=== PATIENT | female | born 1945 | race Caucasian/White ===

== ENCOUNTER → 2019-02-28 | Outpatient (CLI) | payer MEDICARE, OTHER ==
[~2019-02-28] MED LIST: ADULT LOW DOSE81 MG PO; AGGRENOX CAPSU1 EACH PO; ASPIR 8181 MG PO; BONE DENSITY C1 EACH PO; CALCIUM +D & M1 EACH PO; CENTRUM SILVER1 EAC4 PO; FISHOIL; FLONASE 0.05%50 MCG NS; GLUCOSAMINE HC500 MG PO; HYDROXYCHLOROQ200 M1 PO; LANOXIN 0.250.25 M1 PO; MEGARED OMEGA-1 EAC1 PO; MULTIPLE VITAM1 EAC1 PO; MULTIPLE VITAM1 EAC2 PO; NATURAL VITA100 UNIT PO; NORVASC 5 MG TAB5 MG PO; PROBIOTIC1 EAC1 PO; VITAMIN D3400 UNIT PO; VITAMINC500 PO
== END ==
LOC: M.WC 05:16
DX: I89.0 Lymphedema, not elsewhere classified (principal); I10 Essential (primary) hypertension; M06.9 Rheumatoid arthritis, unspecified; Z86.718 Personal history of other venous thrombosis and embolism; Z79.82 Long term (current) use of aspirin

== ENCOUNTER → 2020-04-24 | Outpatient (CLI) | payer MEDICARE | LOC: M.WC 10:00 | PROVIDERS: ATTEND Surgery | DX: L89.153 Pressure ulcer of sacral region, stage 3 (principal); I89.0 Lymphedema, not elsewhere classified; I87.2 Venous insufficiency (chronic) (peripheral); I10 Essential (primary) hypertension; E44.0 Moderate protein-calorie malnutrition; M06.9 Rheumatoid arthritis, unspecified; M81.0 Age-related osteoporosis without current pathological fracture; Z87.891 Personal history of nicotine dependence; Z86.718 Personal history of other venous thrombosis and embolism; Z90.49 Acquired absence of other specified parts of digestive tract ==

== ENCOUNTER → 2020-05-15 | Outpatient (CLI) | payer MEDICARE | LOC: M.WC 09:46 | PROVIDERS: ATTEND Surgery | DX: L89.153 Pressure ulcer of sacral region, stage 3 (principal); E44.0 Moderate protein-calorie malnutrition; I89.0 Lymphedema, not elsewhere classified; I87.2 Venous insufficiency (chronic) (peripheral); I10 Essential (primary) hypertension; M81.0 Age-related osteoporosis without current pathological fracture; M06.9 Rheumatoid arthritis, unspecified; Z87.891 Personal history of nicotine dependence; Z86.718 Personal history of other venous thrombosis and embolism ==

== ENCOUNTER 2020-07-28 17:08 | Emergency (ER) | payer MEDICARE, OTHER ==
[~2020-07-28] VITALS: Ht 160 cm; Wt 41.7 kg
[2020-07-28] MEDS ORDERED: APAP W/CODEINE1 TA2 PO (19:05)
[2020-07-28 19:45] VITALS: BP 133/79
== END 2020-07-28 19:45 | disposition home or self-care (01) ==
LOC: M.ERS 17:08
DX: S63.502A Unspecified sprain of left wrist, initial encounter (principal); S39.92XA Unspecified injury of lower back, initial encounter; M25.551 Pain in right hip; Z79.82 Long term (current) use of aspirin; Z79.899 Other long term (current) drug therapy; Z91.041 Radiographic dye allergy status; W18.39XA Other fall on same level, initial encounter; Y93.89 Activity, other specified; Y92.89 Other specified places as the place of occurrence of the external cause; Y99.8 Other external cause status

== ENCOUNTER 2020-09-20 07:20 | Inpatient (IN) | payer MEDICARE, OTHER ==
[~2020-09-20] VITALS: Ht 172.7 cm; Wt 40.6 kg
[~2020-09-20 07:20] MED LIST changes: +APAP W/CODEINE1 TA2 PO
[2020-09-20 07:25] VITALS: BP 124/75
[2020-09-20 07:55] LABS: ABSOLUTE EOSINOPHILS 0.1 thou/uL (0.0-0.7); ABSOLUTE LYMPHOCYTES 0.4 thou/uL (0.8-5.3); ABSOLUTE MONOCYTES 0.3 thou/uL (0.0-1.2); ABSOLUTE NEUTROPHILS 4.4 thou/uL (1.6-8.1); BASOPHILS 0.8 %; EOSINOPHILS 1.5 %; HEMATOCRIT 33.7 % (37.0-47.0); LYMPHOCYTES 7.2 %; MCH 30.4 pg (26.0-34.0); MCHC 32.8 g/dL (28.0-37.0); MCV 92.7 fL (80.0-100.0); MONOCYTES 6.1 %; MPV 8.6 fl. (7.2-11.1); NUCLEATED RBCS 0 /100WBC; PLATELET COUNT* 214 thou/uL (150-400); POLYS 84.4 %; RBC 3.63 mil/uL (4.20-5.00); RDW-CV 17.2 % (10.5-14.5); WBC 5.2 thou/uL (4.0-11.0)
[2020-09-20] MEDS ORDERED: NORVASC 2.5 MG2.5 M1 PO (07:58)
[2020-09-20 08:09] LABS: CALCIUM 8.6 mg/dL (8.5-10.1); CREATININE 0.7 mg/dL (0.6-1.3); POTASSIUM 4.3 mmol/L (3.5-5.1)
[2020-09-20 08:12] LABS: APTT 25.1 Seconds (25.0-31.3); PROTIME 10.9 Seconds (9.20-11.50)
[2020-09-20 08:27] LABS: ALBUMIN 3.4 g/dL (3.4-5.0); TOTAL PROTEIN 6.8 g/dL (6.4-8.2)
[2020-09-20 09:27] LABS: URINE BILIRUBIN NEGATIVE (Negative); URINE BLOOD NEGATIVE (Negative); URINE CLARITY CLEAR; URINE COLOR YELLOW; URINE GLUCOSE-RANDOM NEGATIVE (Negative); URINE KETONES NEGATIVE (Negative); URINE LEUKOCYTES-REFLEX NEGATIVE (Negative); URINE NITRITE-REFLEX NEGATIVE (Negative); URINE PROTEIN NEGATIVE (Negative); URINE UROBILINOGEN 0.2 E.U./dl (0.2-1.0)
[2020-09-20 10:00] VITALS: BP 114/71
[2020-09-20 10:30] VITALS: BP 132/88
[2020-09-20 12:02] VITALS: BP 118/71
--- NOTE | 2020-09-20 13:12 | 2DMMODE ---
[place] [address] 2 D/M-MODE ECHOCARDIOGRAM Name: LLOYD ELDER Room: [address] IN .R.#: [id number] Admission: 09/20/20 Attend Phys: Ricardo Mac, Discharge: Date of : 41 Date of Service: 09/20/20 1312 Report #: [id number] THIS REPORT FOR: cc: Xavier Castillo MD, Dean L. MD Blick, David R. MD [facility] ~ APPROVED REPORT Study performed: 09/20/2020 11:00:26 EXAM: Comprehensive 2D, Doppler, and color-flow Echocardiogram Patient Location: In-Patient Room #: 209 Status: routine BSA: 1.59 HR: 57 bpm BP: 114/71 mmHg Rhythm: NSR Other Information Study Quality: Excellent Indications CVA/TIA Echo Enhancing Agent Indication: Rule out Shunt Agent(s) / Amount(s) Used: Agitated Saline 10 cc 2D Dimensions IVSd: 9.10 (7-11mm) LVOT Diam: 20.08 (18-24mm) LVDd: 46.04 mm PWd: 8.74 (7-11mm) LVDs: 27.28 (25-40mm) Aortic Root: 39.62 mm Volumes Left Atrial Volume (Systole) LA ESV Index: 50.10 mL/m2 Aortic Valve AoV Peak Garrison.: 1.20 m/s AO Peak Gr.: 5.80 mmHg LVOT Max P.35 mmHg AO Mean Gr.: 3.05 mmHg LVOT Mean P.93 [place] [address] 2 D/M-MODE ECHOCARDIOGRAM Name: JERRODLLOYD SUSI Room: [address] IN .R.#: [id number] Admission: 09/20/20 Attend Phys: Ricardo Mac, Discharge: Date of : 41 Date of Service: 09/20/20 1312 Report #: [id number] LVOT Max V: 0.77 m/s AO V2 VTI: 24.62 cm LVOT Mean V: 0.43 m/s BRIANNE (VTI): 2.39 cm2 LVOT V1 VTI: 18.59 cm AI Crenshaw: 2.29 m/s2 AI PHT: 628.45 ms Mitral Valve E/A Ratio: 0.72 MV Decel. Time: 163.68 ms MV E Max Garrison.: 0.39 m/s MV PHT: 47.47 ms MVA (PHT): 4.63 cm2 TDI E/Lateral E': 5.57 E/Medial E': 6.50 Medial E' Garrison.: 0.06 m/s Lateral E' Garrison.: 0.07 m/s Pulmonary Valve PV Peak Garrison.: 0.76 m/s PV Peak Gr.: 2.30 mmHg Tricuspid Valve RAP Estimate: 5.00 mmHg TR Peak Gr.: 21.12 mmHg RVSP: 26.00 mmHg PA Pressure: 26.00 mmHg Left Ventricle The left ventricle is normal size. There is normal LV segmental wall motion. There is normal left ventricular wall thickness. Left ventricular systolic function is normal. The left ventricular ejection fraction is within the normal range. LVEF is 55-60%. Grade I - abnormal relaxation pattern. Right Ventricle Right ventricle is dilated. The right ventricular systolic function is normal. Atria Left atrium is severely dilated. Bubbles noted in the left atrium consistent with a small right to left shunt, suggesting a patent foramen ovale Right atrium is dilated. Aortic Valve Mild aortic valve sclerosis. Moderate aortic regurgitation. There is no [place] [address] 2 D/M-MODE ECHOCARDIOGRAM Name: LLOYD ELDER Room: [address] IN .R.#: [id number] Admission: 09/20/20 Attend Phys: Ricardo Mac, Discharge: Date of : 41 Date of Service: 09/20/20 1312 Report #: [id number] Mitral Valve The mitral valve is normal in structure. Mild mitral regurgitation. No evidence of mitral valve stenosis. Tricuspid Valve The tricuspid valve is normal in structure. Mild tricuspid regurgitation. No pulmonary hypertension. Pulmonic Valve The pulmonary valve is normal in structure. There is no pulmonic valvular regurgitation. Great Vessels The aortic root is normal in size. IVC is normal in size and collapses >50% with inspiration. Pericardium There is no pericardial effusion. <Conclusion> LVEF is 55-60%. Left atrium is severely dilated. Mild aortic valve sclerosis. Moderate aortic regurgitation. Mild mitral regurgitation. Bubbles noted in the left atrium consistent with a small right to left shunt, suggesting a patent foramen ovale <ELECTRONICALLY SIGNED> By: Keanu Leahy MD, FACC 09/20/20 1312 131 1312 Keanu Leahy MD, FACC /INF
--- NOTE | 2020-09-20 15:02 | EKG ---
[place] [address] ELECTROCARDIOGRAM REPORT Name: LLOYD ELDER Room: [address] ADM IN M.R.#: [id number] Admission: 09/20/20 Attend Phys: Ricardo Mac, Discharge: Date of : 41 Date of Service: 09/20/20 0736 Report #: [id number] THIS REPORT FOR: //name// [facility] ED Test Date: 2020-09-20 Test Time: 07:36:08 Pat Name: LLOYD ELDER Department: Room: [facility] Gender: F Playground Official: BERONICA : 1945 Requested By: Frandy Mott Order Number: [id number] MD: Kaenu Leahy Measurements Intervals [place] Rate: 59 P: 66 IN: 137 QRS: -34 QRSD: 93 T: 1 QT: 440 QTc: 436 Interpretive Statements Sinus rhythm Supraventricular bigeminy Probable left ventricular hypertrophy Compared to ECG 08/22/2016 08:13:21 Atrial premature complex(es) now present Ventricular premature complex(es) no longer present ST (T wave) deviation no longer present Electronically Signed On 09-20-2020 15:02:34 BACTERIOLOGIST DAIRY by Keanu Leahy [email or web address] <ELECTRONICALLY SIGNED> By: Keanu Leahy MD, [facility] 09/20/20 1502 0736 Keanu Leahy MD, [facility] /EPI
[2020-09-20 16:00] VITALS: BP 124/73
[2020-09-20 20:00] VITALS: BP 91/67
[2020-09-21] VITALS: BP 121/75
[2020-09-21 04:58] LABS: CHOLESTEROL 155 mg/dL (<200); HDL CHOLESTEROL 48 mg/dL (>40); LDL CHOLESTEROL 94 mg/dL (<100); TC:HDL 3.2 Ratio (Not establshd); TRIGLYCERIDE 68 mg/dL (<150); VLDL 14 mg/dL (<40)
[2020-09-21 05:13] LABS: SERUM ASSESSMENT CLEAR
--- NOTE | 2020-09-21 06:02 | NUR ---
AT APPROXIMATELY 0400 PATIENT REMOVED CORRESPONDENT. ATTEMPTED TO REAPPLY AND PATIENT REFUSED STATING SHE DIDN'T NEED IT. EDUCATED PATIENT ON IMPORTANCE OF HEART MONITOR BUT SHE CONTINUED TO REFUSE
--- NOTE | 2020-09-21 07:52 | NUR ---
PT TOOK OFF TELE PACK AND REFUSES TO PUT BACK ON. DR. VINCENT AWARE.
--- NOTE | 2020-09-21 08:08 | NUR ---
PT REFUSING BREAKFAST AND AM MEDICATION. KEEPS STATING SHE WANTS TO GO HOME.
[2020-09-21] MEDS ORDERED: PLAVIX 75 MG TA75 MG PO (09:07)
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
--- NOTE | 2020-09-21 10:20 | NUR ---
PT LEFT AMA WITH [facility] AT 1021 THIS AM.
--- NOTE | 2020-09-21 10:57 | CON ---
[address] [address] CONSULTATION Name: LLOYD ELDER Room: [address] IN M.R.#: [id number] Admission: 09/20/20 Attend Phys: Ricardo Mac MD Discharge: 09/21/20 Date of : 41 Report #: [id number] THIS REPORT FOR: cc: Xavier Castillo MD, Dean L. MD ~ More Matute DO NEUROLOGY CONSULTATION HISTORY OF PRESENT ILLNESS: The patient is a 75-year-old female who told me that when she went to sit up, she felt dizzy. She also felt as though she had to urinate frequently. The patient has been using a walker for the past 3 or 4 years. She has rheumatoid arthritis. She came to the Emergency Room because of the dizziness and feeling ill recently. She has no changes in her medications. The patient states that along with the dizziness, she felt she had lower extremity weakness, particularly on the left. PAST MEDICAL HISTORY: Rheumatoid arthritis, hypertension, and gastroesophageal reflux. PAST SURGICAL HISTORY: Right knee surgery. MEDICATIONS: Amlodipine 2.5 mg daily, vitamin C 1000 mg daily, aspirin 325 mg daily, vitamin D 5000 units daily, and pantoprazole 40 mg daily. ALLERGIES: IODINATED CONTRAST MEDIA. PHYSICAL EXAMINATION: VITAL SIGNS: Temperature 36.5, pulse rate 63, respiratory rate 16, blood pressure 118/71, bedside pulse oximetry 98% on room air. NEUROLOGIC: Cranial nerves 2-12 are grossly intact. Motor exam demonstrates symmetrical strength in all 4 extremities with the exception of the left upper extremity where the patient has left proximal upper extremity weakness and pain with range of motion. Reflexes are absent throughout. Plantar responses are flexor bilaterally. Coordination demonstrates no evidence of dysmetria. Gait was not tested. LABORATORY DATA: Hematology: White blood cell count 5.2, hemoglobin 11, hematocrit 33.7, MCV 92.7, platelet count 214,000. INR 1. Urinalysis negative. Chemistry: Sodium 138, potassium 4.3, chloride 102, carbon dioxide 28, BUN 26, creatinine 0.7, GFR 81, glucose 83, calcium 8.6. Liver functions normal with the exception of alkaline phosphatase, which is 119. COVID negative. IMAGING STUDIES: CT scan of the head negative for acute intracranial abnormality. Chest x-ray, no acute [place] [address] CONSULTATION Name: TANNERPRICILLALLOYDABHI GOLDMAN Room: [address]#: [id number] Admission: 09/20/20 Attend Phys: Ricardo Mac MD Discharge: 09/21/20 Date of : 41 Report #: [id number] IMPRESSION: This patient had an episode of vertigo. This occurred when she turned over in bed and also when she stood. The vertigo has resolved. This vertigo may be peripheral in nature; however, an MRI of the head has been ordered to evaluate for brainstem stroke. The patient may continue aspirin 325 mg daily. The patient's lipid profile and hemoglobin A1c are pending. She has been seen by Rehab. Physical therapy, occupational therapy and speech therapy have been ordered. The patient has also had an echocardiogram and this demonstrates a normal ejection fraction, but severely dilated left atrium with moderate aortic regurgitation and mild mitral regurgitation. The patient also has a small patent foramen ovale. Depending on the findings on the MRI, this may need to be closed. I thank you for your kind referral of the patient and we will continue to follow her with you. <ELECTRONICALLY SIGNED> By: More Matute DO 09/21/20 1057 1451 [id number] Matute DO /nt
--- NOTE | 2020-09-21 16:02 | NUR ---
PT WAS DISCHARGED FROM HOSPITAL ON 09/21/20 BEFORE P.T. EVAL AND TX COULD BE COMPLETED.
[2020-09-22 02:05] LABS: GLYCOHEMOGLOBIN (HGB A1C) 5.4 % (4.8-5.6)
[2020-09-22] MEDS ORDERED: XARELTO15 MG PO (18:57)
== END 2020-09-21 10:20 | disposition left against medical advice (07) | DRG 69 ==
LOC: M.ERS 07:20 → M.TBA-ER 08:58 → M.2W 10:20
PROVIDERS: Emergency Medicine Emergency Medical Services; ADMIT Internal Medicine; ATTEND Internal Medicine
DX: G45.9 Transient cerebral ischemic attack, unspecified (principal); G81.94 Hemiplegia, unspecified affecting left nondominant side; M06.9 Rheumatoid arthritis, unspecified; I10 Essential (primary) hypertension; K21.9 Gastro-esophageal reflux disease without esophagitis; I48.0 Paroxysmal atrial fibrillation; R54 Age-related physical debility; Z53.21 Procedure and treatment not carried out due to patient leaving prior to being seen by health care provider; Z20.822 Contact with and (suspected) exposure to COVID-19; Z86.73 Personal history of transient ischemic attack (TIA), and cerebral infarction without residual deficits; Z85.21 Personal history of malignant neoplasm of larynx; Z91.041 Radiographic dye allergy status; Z79.899 Other long term (current) drug therapy; Z87.891 Personal history of nicotine dependence; Z91.14 Patient's other noncompliance with medication regimen

== ENCOUNTER 2020-09-22 08:08 | Inpatient (IN) | payer MEDICARE, OTHER ==
[~2020-09-22] VITALS: Ht 165.1 cm; Wt 41.3 kg
[~2020-09-22 08:08] MED LIST changes: +NORVASC 2.5 MG2.5 M1 PO; +PLAVIX 75 MG TA75 MG PO
[2020-09-22 08:12] VITALS: BP 96/80
[2020-09-22 09:10] LABS: ABSOLUTE BASOPHILS 0.1 thou/uL (0.0-0.2); ABSOLUTE EOSINOPHILS 0.1 thou/uL (0.0-0.7); ABSOLUTE LYMPHOCYTES 0.4 thou/uL (0.8-5.3); ABSOLUTE MONOCYTES 0.3 thou/uL (0.0-1.2); ABSOLUTE NEUTROPHILS 3.4 thou/uL (1.6-8.1); BASOPHILS 1.2 %; EOSINOPHILS 2.8 %; HEMATOCRIT 35.1 % (37.0-47.0); HEMOGLOBIN 11.6 gm/dL (12.0-15.0); LYMPHOCYTES 9.4 %; MCH 30.2 pg (26.0-34.0); MCHC 32.9 g/dL (28.0-37.0); MCV 91.9 fL (80.0-100.0); MONOCYTES 7.3 %; MPV 9.3 fl. (7.2-11.1); NUCLEATED RBCS 0 /100WBC; PLATELET COUNT* 231 thou/uL (150-400); POLYS 79.3 %; RBC 3.83 mil/uL (4.20-5.00); RDW-CV 17.2 % (10.5-14.5); WBC 4.3 thou/uL (4.0-11.0)
[2020-09-22 09:25] LABS: CALCIUM 8.8 mg/dL (8.5-10.1); CREATININE 0.7 mg/dL (0.6-1.3); POTASSIUM 4.5 mmol/L (3.5-5.1)
[2020-09-22 09:30] LABS: ALBUMIN 3.3 g/dL (3.4-5.0); TOTAL PROTEIN 7.1 g/dL (6.4-8.2)
[2020-09-22 10:22] LABS: URINE BILIRUBIN NEGATIVE (Negative); URINE BLOOD NEGATIVE (Negative); URINE CLARITY CLEAR; URINE COLOR YELLOW; URINE GLUCOSE-RANDOM NEGATIVE (Negative); URINE KETONES NEGATIVE (Negative); URINE LEUKOCYTES-REFLEX NEGATIVE (Negative); URINE NITRITE-REFLEX NEGATIVE (Negative); URINE PROTEIN NEGATIVE (Negative); URINE SPECIFIC GRAVITY 1.015 (1.005-1.030); URINE UROBILINOGEN 0.2 E.U./dl (0.2-1.0)
[2020-09-22 11:43] VITALS: BP 130/80
[2020-09-22 12:00] VITALS: BP 111/77
[2020-09-22 16:14] VITALS: BP 99/58
[2020-09-22] MEDS ORDERED: XARELTO15 MG PO (18:57)
[2020-09-22 20:00] VITALS: BP 103/63
[2020-09-23 00:11] VITALS: BP 100/59
[2020-09-23 04:22] LABS: HEMOGLOBIN 10.7 gm/dL (12.0-15.0); MCH 30.8 pg (26.0-34.0); MCHC 33.5 g/dL (28.0-37.0); MPV 9.4 fl. (7.2-11.1); NUCLEATED RBCS 0 /100WBC; PLATELET COUNT* 211 thou/uL (150-400); RBC 3.48 mil/uL (4.20-5.00); RDW-CV 17.5 % (10.5-14.5); WBC 6.2 thou/uL (4.0-11.0)
[2020-09-23 04:38] LABS: CALCIUM 9.5 mg/dL (8.5-10.1); CREATININE 0.8 mg/dL (0.6-1.3); POTASSIUM 4.8 mmol/L (3.5-5.1)
[2020-09-23 04:49] VITALS: BP 103/62
[2020-09-23 05:39] LABS: ABSOLUTE LYMPHOCYTES 0.2 thou/uL (0.8-5.3); PLATELET ESTIMATE ADEQUATE
[2020-09-23 05:40] LABS: ANISOCYTOSIS 1+; POIKILOCYTOSIS 1+
[2020-09-23 08:03] VITALS: BP 110/62
--- NOTE | 2020-09-23 13:40 | EKG ---
[place] [address] ELECTROCARDIOGRAM REPORT Name: LLOYD ELDER Room: [address] ADM IN M.R.#: [id number] Admission: 09/22/20 Attend Phys: Lemuel Ivan, Discharge: Date of : 41 Date of Service: 09/22/20817 Report #: [id number] THIS REPORT FOR: //name// [facility] ED Test Date: 2020-09-22 Test Time: 08:18:23 Pat Name: LLOYD ELDER Department: Room: [facility] Gender: F Superintendent Drilling And Production: RUBIO : 1945 Requested By: Frandy Mott Order Number: [id number] MD: Solo Main Measurements Intervals [place] Rate: 62 P: 62 [place]: 138 QRS: -36 QRSD: 98 T: QT: 453 QTc: 460 Interpretive Statements Sinus rhythm Multiple premature complexes, vent & supraven Sinus pause Left axis deviation Borderline repolarization abnormality Compared to ECG 09/20/2020 07:36:08 Sinus pause or arrest now present Left-axis deviation now present Atrial premature complex(es) no longer present Electronically Signed On 09-23-2020 13:40:13 WAREHOUSE PICKER by Solo Main [email or web address] <ELECTRONICALLY SIGNED> By: Solo Main MD, [facility] 09/23/20 1340 7 7 Solo Main MD, [facility] /EPI
[2020-09-23 13:51] VITALS: BP 109/65
[2020-09-23 16:44] VITALS: BP 98/59
[2020-09-23 23:46] VITALS: BP 117/73
[2020-09-24 00:12] VITALS: BP 136/75
[2020-09-24 03:49] VITALS: BP 123/75
[2020-09-24 07:45] VITALS: BP 141/83
[2020-09-24 10:12] VITALS: BP 141/83
[2020-09-24 14:10] VITALS: BP 141/83
== END 2020-09-24 15:30 | disposition home health service (06) | DRG 149 ==
LOC: M.ERS 08:08 → M.TBA-ER 10:12 → M.2W 10:12
PROVIDERS: Emergency Medicine Emergency Medical Services; ADMIT Internal Medicine; ATTEND Internal Medicine
PROC: 0HBRXZZ Excision of Toe Nail, External Approach (ICD-10-PCS; principal; 2020-09-23)
DX: H81.10 Benign paroxysmal vertigo, unspecified ear (principal); E43 Unspecified severe protein-calorie malnutrition; Z68.1 Body mass index [BMI] 19.9 or less, adult; B35.1 Tinea unguium; I48.91 Unspecified atrial fibrillation; D64.9 Anemia, unspecified; Z20.822 Contact with and (suspected) exposure to COVID-19; Z86.73 Personal history of transient ischemic attack (TIA), and cerebral infarction without residual deficits; Z79.01 Long term (current) use of anticoagulants; Z79.899 Other long term (current) drug therapy; Z91.041 Radiographic dye allergy status; Z85.21 Personal history of malignant neoplasm of larynx; Z87.891 Personal history of nicotine dependence

== ENCOUNTER 2020-10-16 08:52 | Inpatient (IN) | payer MEDICARE, OTHER ==
[~2020-10-16] VITALS: Ht 165.1 cm; Wt 38.5 kg
[~2020-10-16 08:52] MED LIST changes: +XARELTO15 MG PO
[2020-10-16 09:13] VITALS: BP 116/80
[2020-10-16 10:44] LABS: HEMATOCRIT 32.7 % (37.0-47.0); HEMOGLOBIN 10.9 gm/dL (12.0-15.0); MCH 31.3 pg (26.0-34.0); MCHC 33.2 g/dL (28.0-37.0); MCV 94.2 fL (80.0-100.0); MPV 8.6 fl. (7.2-11.1); RBC 3.47 mil/uL (4.20-5.00); WBC 3.2 thou/uL (4.0-11.0)
[2020-10-16 10:50] LABS: URINE BILIRUBIN NEGATIVE (Negative); URINE BLOOD NEGATIVE (Negative); URINE CLARITY CLEAR; URINE COLOR YELLOW; URINE GLUCOSE-RANDOM NEGATIVE (Negative); URINE KETONES NEGATIVE (Negative); URINE LEUKOCYTES-REFLEX NEGATIVE (Negative); URINE NITRITE-REFLEX NEGATIVE (Negative); URINE PROTEIN NEGATIVE (Negative); URINE SPECIFIC GRAVITY 1.015 (1.005-1.030); URINE UROBILINOGEN 0.2 E.U./dl (0.2-1.0)
[2020-10-16 10:55] LABS: CALCIUM 9.8 mg/dL (8.5-10.1); CREATININE 0.6 mg/dL (0.6-1.3); POTASSIUM 4.1 mmol/L (3.5-5.1)
[2020-10-16] MEDS ORDERED: KEFLEX500 M1 PO (11:55)
--- NOTE | 2020-10-16 14:20 | EKG ---
[place] [address] ELECTROCARDIOGRAM REPORT Name: LLOYD ELDER Room: [place] [address] ADM IN .R.#: [id number] Admission: 10/16/20 Attend Phys: Hernandez Starks Discharge: Date of : 41 Date of Service: 10/16/20922 Report #: [id number] THIS REPORT FOR: //name// [facility] ED Test Date: 2020-10-16 Test Time: 09:23:41 Pat Name: LLOYD ELDER Department: Room: [place] [address] Gender: F Case Management Manager: KHADIJAH : 1945 Requested By: Frandy Mott Order Number: [id number] Miguel MD: Keanu Leahy Measurements Intervals [place] Rate: 56 P: 84 MO: 149 QRS: -24 QRSD: 102 T: 21 QT: 434 QTc: 419 Interpretive Statements Sinus rhythm Atrial premature complexe Borderline left axis deviation septal infarct, age indeterminate Compared to ECG 09/22/2020 08:18:23 pac no longer seen Electronically Signed On 10-16-2020 14:20:22 CDT by Keanu Leahy [email or web address] <ELECTRONICALLY SIGNED> By: Keanu Leahy MD, [facility] 10/16/20 1420 2 2 Keanu Leahy MD, [facility] /EPI
--- NOTE | 2020-10-16 16:06 | NUR ---
PT ASSISTED TO THE COMMODE. PT HAD A BOWEL MOVEMENT. PT ASSISTED BACK TO THE BED AND GIVEN WARM BLANKETS AND A CALL LIGHT.
--- NOTE | 2020-10-16 17:39 | NUR ---
PT'S FAMILY MEMBER CAME TO ER, HE STATED PT CALLED AND TOLD HIM THAT THE HOSPITAL KICKED HER OUT. PT'S FAMILY MEMBER EXPRESSED CONCERN REGARDING PT'S ABILITY TO CARE FOR HERSELF AT HOME ALONE.
[2020-10-16 19:00] VITALS: BP 131/73
[2020-10-16 20:28] VITALS: BP 130/68
[2020-10-16 20:30] VITALS: BP 125/86
--- NOTE | 2020-10-16 20:30 | NUR ---
RECEIVED REPORT FROM ER, PT TO ROOM. SEDATED, ABLE TO ROUSE BUT NOT ANSWER QUESTIONS. TOTAL LIFT FOR TRANSFER INTO BED. RED AND HEALING SACRUM WOUND. TELEMETRY ON SHOWING A-FIB WITH PVC. ADMISSION HX RECEIVED FROM PREVIOUS CHART. WILL CONT TO MONITOR AND ASSIST NEEDED.
[2020-10-17 00:25] VITALS: BP 90/59
[2020-10-17 04:21] LABS: HEMATOCRIT 33.9 % (37.0-47.0); HEMOGLOBIN 11.3 gm/dL (12.0-15.0); MCH 31.2 pg (26.0-34.0); MCHC 33.5 g/dL (28.0-37.0); MCV 93.1 fL (80.0-100.0); MPV 8.6 fl. (7.2-11.1); RBC 3.64 mil/uL (4.20-5.00); RDW-CV 16.7 % (10.5-14.5); WBC 3.1 thou/uL (4.0-11.0)
[2020-10-17 04:36] VITALS: BP 103/67
[2020-10-17 04:44] LABS: CALCIUM 8.9 mg/dL (8.5-10.1); CREATININE 0.5 mg/dL (0.6-1.3); POTASSIUM 3.6 mmol/L (3.5-5.1); TOTAL BILIRUBIN 0.7 mg/dL (<0.1-1.0); TOTAL PROTEIN 6.5 g/dL (6.4-8.2)
--- NOTE | 2020-10-17 05:45 | NUR ---
PT AWAKE OCC AND COOPERATIVE. ASSISTED TO BSC, VOIDING WELL. TELEMETRY CONT TO SHOW A-FIB. NO COMPLAINTS VOICED. HS GOALS OF REST AND SAFETY ACHIEVED. HOURLY ROUNDING OBSERVED.
--- NOTE | 2020-10-17 10:28 | NUR ---
CM SPOKE TO THE PT TO DISCUSS CM ASSESSMENT. PT A&O, AND NORMALLY INDEPENDENT WITH ADL'S. PT INFORMS THAT SHE RESIDES AT HOME WITH SPOUSE, BUT HE IS CURRENTLY 'AT THE HALFWAY GETTING THERAPY'. PT USES WALKER OR CANE FOR MOBILITY. PT HAD D/C'D WITH [facility] ON 09/24/20, BUT PT INFORMS THAT THEY NEVER CAME TO SEE HER. CM HAS PAST HX OF SNF, BUT COULD NOT RECALL WHERE. CM SPOKE TO PT TO DISCUSS D/C PLANNING NEEDS AND POSSIBILITY OF HH VS SNF AT D/C AND PT DECLINED BOTH. RN IN-CHARGE OF PT INFORMS THAT THE PT'S SPOUSE IS CURRENTLY HERE INPT AT THIS HOSPITAL. CM TO CALL PT'S NEPHEW/DPOA TO DISCUSS D/C PLANNING NEEDS. CM WILL REMAIN AVAILABLE TO ASSIST AND FOLLOW NEEDED.
[2020-10-17 12:22] VITALS: BP 114/77
--- NOTE | 2020-10-17 15:10 | NUR ---
Pt has become extremely agitated this afternoon. Dr. Cavazos has placed orders for a 1:1 sitter and eddi hickey. Will continue to monitor.
--- NOTE | 2020-10-17 16:32 | EKG ---
[place] [address] ELECTROCARDIOGRAM REPORT Name: LLOYD ELDER Room: [address] ADM IN M.R.#: [id number] Admission: 10/16/20 Attend Phys: Hernandez Starks Discharge: Date of : 41 Date of Service: 10/17/20913 Report #: [id number] THIS REPORT FOR: //name// [facility] Test Date: 2020-10-17 Test Time: 09:14:00 Pat Name: LLOYD ELDER Department: Room: [address] Gender: F Supervisor Train Operations: SAMI : 1945 Requested By: Hernandez Starks Order Number: [id number] Miguel MD: Keanu Leahy Measurements Intervals [place] Rate: 74 P: AL: QRS: -32 QRSD: 100 T: 105 QT: 504 QTc: 560 Interpretive Statements sinus rhythm with pac's Left axis deviation Borderline repolarization abnormality Prolonged QT interval Artifact in lead(s) I,II,III,aVR,aVL,aVF Compared to ECG 10/16/2020 09:23:41 Prolonged QT interval now present Myocardial infarct finding no longer present Electronically Signed On 10-17-2020 16:32:10 CDT by Keanu Leahy [email or web address] <ELECTRONICALLY SIGNED> By: Keanu Leahy MD, [facility] 10/17/20 1632 3 3 Keanu Leahy MD, [facility] /EPI
[2020-10-17 20:00] VITALS: BP 109/73
[2020-10-17 23:47] VITALS: BP 119/75
[2020-10-18 04:00] VITALS: BP 122/70
[2020-10-18 04:28] LABS: HEMATOCRIT 34.1 % (37.0-47.0); HEMOGLOBIN 11.5 gm/dL (12.0-15.0); MCH 31.4 pg (26.0-34.0); MCHC 33.6 g/dL (28.0-37.0); MCV 93.4 fL (80.0-100.0); MPV 8.4 fl. (7.2-11.1); RBC 3.66 mil/uL (4.20-5.00); RDW-CV 16.7 % (10.5-14.5); WBC 4.9 thou/uL (4.0-11.0)
[2020-10-18 04:48] LABS: CALCIUM 8.9 mg/dL (8.5-10.1); CREATININE 0.6 mg/dL (0.6-1.3); POTASSIUM 4.3 mmol/L (3.5-5.1); TOTAL BILIRUBIN 0.5 mg/dL (<0.1-1.0); TOTAL PROTEIN 6.7 g/dL (6.4-8.2)
[2020-10-18 08:00] VITALS: BP 122/81
--- NOTE | 2020-10-18 12:00 | NUR ---
CM INFORMED DURING PRIME ROUNDING OF THE PLAN OF CARE FOR THE PT. PT CURRENTLY HAS 1:1 SITTER FOR SAFETY. PHSICIAN INFORMS OF PLAN TO REMOVE 1:1, CONSULT TELEPSYCH (TO ASSESS CAPACITY AND RECOMMENDATIONS). PT MAY NEED [facility] VS HH OR SNF. HOWEVER PT WILL NEED TO BE OFF 1:1 SITTER FOR 24HRS PRIOR TO D/C TO SNF. CM WILL REMAIN AVAILABLE TO ASSIST AND FOLLOW NEEEDED.
[2020-10-18 12:26] VITALS: BP 113/69
--- NOTE | 2020-10-18 13:50 | NUR ---
ASSUMED CARE OF PATIENT THIS AM AT 0730. PATIENT IS ALERT COOPERATIVE THIS AM. SITTER IS AT THE BEDSIDE. PATIENT BECOMING MORE ANGRY AND AGITATED THE DAY PASSES. TELE SHOWS SINUS JUNIOR. WILL CONTINUE TO MONITOR.
[2020-10-18 16:03] VITALS: BP 118/76
[2020-10-18 21:00] VITALS: BP 117/71
[2020-10-19 00:09] VITALS: BP 114/72
[2020-10-19 04:54] VITALS: BP 133/83
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
[2020-10-19 08:37] VITALS: BP 129/92
[2020-10-19 11:56] VITALS: BP 113/70
[2020-10-19 16:14] VITALS: BP 115/78
[2020-10-19 20:04] VITALS: BP 104/63
[2020-10-20 00:32] VITALS: BP 145/75
[2020-10-20 03:46] VITALS: BP 114/65
--- NOTE | 2020-10-20 04:24 | NUR ---
PT ORIENTED TO SELF, CONFUSED, IMPULSIVE, AND AT TIMES BECOMES AGITATIED. DEMARCO GIVEN PRN FOR AGITATION ORDERED. IV SALINE LOCKED, PT SR/SB ON TELE MONITOR. PT UP WITH ASSIST TO BSC. SITTER AT BEDSIDE. WILL CONTINUE TO MONITOR.
[2020-10-20 05:36] LABS: URINE SODIUM 99 (39-258); URINE SODIUM-mEq/L 117 mmol/L (Not Estab.)
[2020-10-20 08:56] VITALS: BP 111/52
[2020-10-20 20:54] VITALS: BP 118/70
[2020-10-21 00:08] VITALS: BP 115/48
[2020-10-21 04:51] VITALS: BP 112/51
[2020-10-21 08:00] VITALS: BP 107/68
--- NOTE | 2020-10-21 12:07 | NUR ---
ASSUMED CARE OF PATIENT THIS AM AT 0730. PATIENT IS ALERT, CONFUSED AND IMPULSIVE AND APPEARS AGITATED. SHE DENIES PAIN. TELE SHOWS SINUS ARRYTHMIA THIS AM. PATIENT BELIEVES SHE NEEDS TO PAY FOR HER MEALS. PLANS DISCHARGE TO [facility] TODAY. PATIENT BECOMING MORE AGITATED THE DAY PROGRESSES. REPORT CALLED TO NURSE AT [facility]. PATIENT MEDICATED FOR AGITATION X 1. SALINE LOCK AND TELE MONITOR DISCONTINUED.
[2020-10-21] MEDS ORDERED: METOPROLOL TART25 MG PO (12:40)
--- NOTE | 2020-10-21 13:18 | NUR ---
CM INFORMED DURING PRIME ROUNDING OF THE PLAN OF CARE FOR THE PT. PHYSISCIAN INFORMS THAT TELE-PSYCH EVAL RECOMMENDS INPT PSYCH FOR PT. CM SPOKE TO ADMISSIONS AT [facility] TO INFORM OF REFERRAL FOR INPT [facility]. DR APARICIO ACCEPTS PT. CM SPOKE TO PT'S NEPHEW/DPOA SAMANTHA HOLT TO INFORM OF ALL OF THE ABOVE INFO AND HE IS IN AGREEMENT. SAMANTHA FAXED PT'S DPOA FORMS TO CM AND CM PLACE COPY IN CHART. AMBULANCE TRASNPORT ARRANGED WITH [facility]SP[facility]. RN INFORMED OF PT'S TIME OF TRANSPORT AND WHERE TO CALL REPORT. RN IN AGREEMENT. CM WILL REMAIN AVAILABLE TO ASSIST AND FOLLOW NEEDED. [facility] PHONE: [phone] FAX: [phone]
== END 2020-10-21 12:42 | DRG 308 ==
LOC: M.ERS 08:52 → M.TBA-ER 13:05 → M.2W 13:05 → M.TBA-ER 17:35 → M.2W 20:51
PROVIDERS: Emergency Medicine Emergency Medical Services; Internal Medicine; ADMIT Internal Medicine; ATTEND Internal Medicine
DX: I47.1 Supraventricular tachycardia (principal); G93.41 Metabolic encephalopathy; E43 Unspecified severe protein-calorie malnutrition; Z68.1 Body mass index [BMI] 19.9 or less, adult; Q21.1 Atrial septal defect; I48.91 Unspecified atrial fibrillation; I10 Essential (primary) hypertension; I35.1 Nonrheumatic aortic (valve) insufficiency; K59.00 Constipation, unspecified; Z20.822 Contact with and (suspected) exposure to COVID-19; Z86.73 Personal history of transient ischemic attack (TIA), and cerebral infarction without residual deficits; Z85.21 Personal history of malignant neoplasm of larynx; Z79.01 Long term (current) use of anticoagulants; Z79.899 Other long term (current) drug therapy; Z91.041 Radiographic dye allergy status; Z87.891 Personal history of nicotine dependence